=== PATIENT | male | born 1960 | race Caucasian/White ===

== ENCOUNTER 2017-03-18 14:02 | Emergency (ER) | payer BC ==
[2017-03-18] MEDS ORDERED: BETAGAN5 M1 EACH EYE (14:06)
[2017-03-18] MEDS ORDERED: XALATAN2.5 M1 EACH EYE (14:06)
[2017-03-18] MEDS ORDERED: ERYTHROMYCIN1 GM RIGHT EYE (15:58)
== END 2017-03-18 16:14 ==
LOC: EDMED 14:02
DX: S05.01XA Injury of conjunctiva and corneal abrasion without foreign body, right eye, initial encounter (principal); H40.9 Unspecified glaucoma; X58.XXXA Exposure to other specified factors, initial encounter